=== PATIENT | male | born 1965 | race Caucasian/White ===

== ENCOUNTER 2018-05-04 11:47 | Day surgery (SDC) | payer OTHER ==
[2018-05-04] MEDS ORDERED: LIDOCAINE 2% (SDV) 5 ML INJ (14:57)
[2018-05-04] MEDS ORDERED: PROPOFOL 60 ML (14:57)
[2018-05-04] MEDS ORDERED: DIPHENHYDRAMINE 50 MG INJ IV (15:30)
[2018-05-04] MEDS ORDERED: HYDROmorphONE 1 MG/5 ML IV SYRINGE IV ×2 (15:30)
[2018-05-04] MEDS ORDERED: ONDANSETRON 4 MG INJ IV (15:30)
[2018-05-04] MEDS ORDERED: FENTAnyl 50 MCG/ML VIAL IV (15:30)
== END 2018-05-04 16:27 | disposition home or self-care (01) ==
LOC: GIL 11:47
DX: Z12.11 Encounter for screening for malignant neoplasm of colon (principal); K64.8 Other hemorrhoids; K52.9 Noninfective gastroenteritis and colitis, unspecified; K29.00 Acute gastritis without bleeding; E11.9 Type 2 diabetes mellitus without complications; E78.00 Pure hypercholesterolemia, unspecified; Z91.19 Patient's noncompliance with other medical treatment and regimen
CPT/HCPCS: 43239; 82962; 88305